=== PATIENT | male | born 1990 | race Caucasian/White ===

== ENCOUNTER 2021-03-05 12:17 | Outpatient (CLI) | payer OTHER ==
--- NOTE | 2021-03-06 11:37 | XRAY Report ---
PROCEDURE: No trauma found. INDICATIONS: GREAT TOE PAIN TECHNIQUE: 3 views of the foot were acquired. COMPARISON: None FINDINGS: Bones: No fractures or dislocations. No suspicious bony lesions. Soft tissues: No tibiotalar joint effusion. Achilles tendon appears normal. IMPRESSION: There is a mild angulation abnormality in the first interphalangeal joint, with mild lateral tilt of the distal articular surface of the first proximal phalanx minimal joint space narrowing is seen at t he first MTP joint. There is a small plantar fascial insertion spur on the posterior right calcaneus on the lateral view. Reviewed by: Sami Landry MD on 03/06/2021 11:36 AM PDT Approved by: Sami Landry MD on 03/06/2021 11:36 AM PDT Station ID: [id number]
== END 2021-03-05 23:59 | disposition home or self-care (01) ==
LOC: DI.N 12:17
PROVIDERS: ATTEND Orthopaedic Surgery
DX: M19.071 Primary osteoarthritis, right ankle and foot (principal); M77.31 Calcaneal spur, right foot

== ENCOUNTER 2021-04-09 08:44 | Outpatient (CLI) | payer OTHER ==
--- NOTE | 2021-04-09 12:58 | XRAY Report ---
PROCEDURE: Foot 3 View RT INDICATIONS: FRACTURE OF PROXIMAL PHALANX OF RIGHT GREAT TOE TECHNIQUE: 3 views of the foot were acquired. COMPARISON: 03/05/2021 FINDINGS: Unchanged alignment of right great toe proximal phalanx fracture. Persistent fracture lucency is seen . Associated slight lateral deviation of the right great toe. There is some callus formation. Great toe soft tissue swelling. Plantar calcaneal spur. No definite pes planus or hallux valgus. IMPRESSION: Unchanged alignment of the right great toe proximal phalanx fracture. Reviewed by: Zack Harper MD on 04/09/2021 12:56 PM PDT Approved by: Zack Harper MD on 04/09/2021 12:56 PM PDT Station ID: [id number]
== END 2021-04-09 08:45 | disposition home or self-care (01) ==
LOC: DI.N 08:44
PROVIDERS: ATTEND Orthopaedic Surgery
DX: S92.411D Displaced fracture of proximal phalanx of right great toe, subsequent encounter for fracture with routine healing (principal)

== ENCOUNTER 2022-08-02 20:19 | Emergency (ER) | payer OTHER ==
[2022-08-02 20:29] VITALS: BP 149/87
[2022-08-02] MEDS ORDERED: oxyCODONE 5 MG TABLET PO STA (20:34)
--- NOTE | 2022-08-02 20:35 | ED Physician Documentation ---
PD HPI LOWER EXT INJURY - Stated complaint Stated Complaint: RT KNEE INJ - Chief complaint Chief Complaint: Trauma Ext - History obtained from History obtained from: Patient - Additional information Additional information: 32-year-old gentleman with history of arthroscopic surgery of the left knee was playing [employer] at around 3 in the afternoon and went up to jump and felt a pop in the medial right knee which progressively got worse over the next few hours and it was not responsive to ibuprofen. PD PAST MEDICAL HISTORY - Present Medications Home Medications: Ambulatory Orders Medication Instructions Recorded Confirmed Oxycodone HCl/Acetaminophen 1 - 2 each PO Q6H PRN #10 tablet 08/02/22 [Percocet 5-325 mg Tablet] - Allergies Allergies/Adverse Reactions: Allergies Allergy/AdvReac Type Severity Reaction Status Date / Time No Known Drug Allergies Allergy Verified 08/02/22 20:22 PD ED PE NORMAL - Vitals Vital signs reviewed: Yes - General General: Alert and oriented X 3, No acute distress - Extremities Extremities: Other (He has small effusions of both knees that seems symmetric. I am unable to elicit any specific tenderness of the right knee. That said he has pain without laxity of MCL testing and positive grind testing.) - Neuro Neuro: Alert and oriented X 3, Normal speech Results - Vitals Vitals: Vital Signs - 24 hr 08/02/22 20:22 Temperature 36.5 C Heart Rate 64 Respiratory 16 Rate Blood Pressure 149/87 H O2 Saturation 98 Oxygen O2 Source Room air - Rads (name of study) 4 view x-ray of the right knee showing small effusion, no fracture Radiology: Final report received, EMP read indepedently PD Medical Decision Making - ED course Complexity details: considered differential (Most consistent with a medial meniscus injury given the mechanism and exam. Ligamentous injury also possibility.) ED course: Placed in a knee immobilizer. He does not need crutches. Discussed need for follow-up. Departure - Departure Disposition: 01 Home, Self Care Clinical Impression: Internal derangement of right knee Condition: Good Record reviewed to determine appropriate education?: Yes Instructions: ED Meniscal Injury Knee Poss Prescriptions: Oxycodone HCl/Acetaminophen [Percocet 5-325 mg Tablet] 1 - 2 each PO Q6H PRN #10 tablet PRN Reason: pain Comments: As discussed, concern would be for a medial meniscus injury given your exam. [place]. It is okay to walk and bear weight, but wear the splint while up and around. You can take it off for bathing and sleeping. I sent your prescription electronically to the [facility]. I am prescribing a short course of narcotic pain medication for you. These are potentially dangerous and addictive medications that should be used carefully. These medications may constipate you. Take an qemc-hrl-hlqckby stool softener (docusate) twice daily with plenty of water while taking these medications. If you go 24 hours without a bowel movement, take mstb-rur-dnfendw miralax, per package instructions. Do not drink or drive while taking these medications. If you received narcotic or sedating medications while in the emergency department, do not drive for 24 hours. Store this medication in a safe, secure place and out of reach of children. It is a violation of federal law to give or sell this medication to another person or to use in a manner other than prescribed. The ED will not refill narcotic prescriptions, including prescriptions lost or stolen. To dispose of unwanted medications: 1. [facility] [address] in [place] has a medication drop box. They accept prescription medications (in pill form) Tuesday through Tuesday 9:00 a.m. to 5:00 p.m. 2. The [facility] accepts prescription medications (in pill form only) for disposal year round. Call for more inf ormation. 3. Contact the [facility] for the next [facility] sponsored prescription drug collection event. , [phone], or [phone]; Note that many narcotic pain relievers also contain Tylenol/acetaminophen. Please ensure that your total dose of acetaminophen from all sources does not exceed 3 g (3000 mg) per day. Forms: Activity restrictions Discharge Date/Time: 08/02/22 21:10
--- NOTE | 2022-08-02 21:10 | XRAY Report ---
PROCEDURE: Knee 4 View RT INDICATIONS: knee inj TECHNIQUE: 4 views of the right knee were acquired. COMPARISON: None. FINDINGS: Bones: No fractures or dislocations. The joint spaces appear preserved. No suspicious bony lesions. Soft tissues: There is a small joint effusion. No suspicious soft tissue calcifications. IMPRESSION: 1. No fracture or dislocation. 2. Small joint effusion. Reviewed by: Crow Metzger MD on 08/02/2022 9:09 PM [facility] Approved by: Crow Metzger MD on 08/02/2022 9:09 PM PST Station ID: [id number]
== END 2022-08-02 21:10 | disposition home or self-care (01) ==
LOC: ED 20:19
DX: M23.91 Unspecified internal derangement of right knee (principal); Y93.74 Activity, frisbee
CPT/HCPCS: 73564; 99283; A9270